=== PATIENT | male | born 1995 | race Caucasian/White ===

== ENCOUNTER 2016-12-19 15:56 | Emergency (ER) | payer SELFPAY ==
[2016-12-19 16:18] VITALS: BP 124/66
--- NOTE | 2016-12-19 16:34 | EDM.PDOC ---
ED HPI GENERAL MEDICAL PROBLEM - General Chief Complaint: Lower Extremity Injury/Pain Stated Complaint: BROKEN FOOT [id number] Time Seen by Provider: 12/19/16 16:32 Source of Information: Reports: Patient History Limitations: Reports: No Limitations - History of Present Illness INITIAL COMMENTS - FREE TEXT/NARRATIVE: 21 yo white male c/o left foot pain after injury last pm when drinking alcohol after jumping off wood deck Onset Date: 12/18/16 Onset Time: 21:00 Duration: Hour(s): Location: Reports: Lower Extremity, Left Quality: Reports: Ache Severity: Moderate Improves with: Reports: None Worsens with: Reports: None Associated Symptoms: Reports: No Other Symptoms Left Upper Feet Pain Score (Numeric/FACES): 8 - Related Data Allergies Allergy/AdvReac Type Severity Reaction Status Date / Time No Known Allergies Allergy Verified 12/19/16 16:32 Home Meds: Home Meds . [No Known Home Meds] 12/19/16 [History] Review of Systems - Review of Systems Review Of Systems: See Below Constitutional: Reports: No Symptoms Eyes: Reports: No Symptoms Ears: Reports: No Symptoms Nose: Reports: No Symptoms Mouth/Throat: Reports: No Symptoms Respiratory: Reports: No Symptoms Cardiovascular: Reports: No Symptoms GI/Abdominal: Reports: No Symptoms Genitourinary: Reports: No Symptoms Musculoskeletal: Reports: Foot Pain (left) Skin: Reports: No Symptoms Neurological: Reports: No Symptoms Psychiatric: Reports: No Symptoms ED EXAM, GENERAL - Physical Exam Exam: See Below Exam Limited By: Other (smell of alc) General Appearance: Alert, WD/WN, No Apparent Distress Eye Exam: Bilateral Eye: EOMI Ears: Normal External Exam Nose: Normal Inspection Throat/Mouth: Normal Inspection Head: Atraumatic Respiratory/Chest: No Respiratory Distress Cardiovascular: Normal Peripheral Pulses Back Exam: Normal Inspection Extremities: Normal Inspection, Other (left dorsal foot w/o swelling and positive tenderness w/o color change) Neurological: Alert, Oriented, CN II-XII Intact Psychiatric: Normal Affect, Normal Mood Skin Exam: Warm, Dry, Intact Lymphatic: No Adenopathy Course - Vital Signs Last Recorded V/S: Last Vital Signs Temp 37.4 C 12/19/16 16:17 Pulse 101 H 12/19/16 16:17 Resp 18 12/19/16 16:17 BP 124/66 12/19/16 16:17 Pulse Ox 100 12/19/16 16:17 - Orders/Labs/Meds Orders: Active Orders 24 hr Category Date Time Status Foot Comp Min 3V Lt [CR] Urgent Exams 12/19/16 16:27 Taken DRUG SCREEN, URINE [URCHEM] Stat Lab 12/19/16 16:34 Ordered ETOH [ETHANOL BLOOD MEDICAL] [CHEM] Stat Lab 12/19/16 16:50 Received Departure - Departure Time of Disposition: 17:14 Disposition: Home, Self-Care 01 Condition: Good Clinical Impression: Contusion of foot, left Qualifiers: Encounter type: initial encounter Qualified Code(s): S90.32XA - Contusion of left foot, initial encounter - Discharge Information Forms: ED Department Discharge Additional Instructions: Rest Ice Pack TID X 15 mins. For Pain: Tylenol ES 500mg Q 4-6 hours as needed OR Motrin 600mg TID w/ food Stop Alcohol Intake F/U w/ PCP - My Orders Last 24 Hours: My Active Orders 12/19/16 16:27 Foot Comp Min 3V Lt [CR] Urgent 12/19/16 16:34 DRUG SCREEN, URINE [URCHEM] Stat 12/19/16 16:50 ETOH [ETHANOL BLOOD MEDICAL] [CHEM] Stat - Assessment/Plan Last 24 Hours: My Active Orders 12/19/16 16:27 Foot Comp Min 3V Lt [CR] Urgent 12/19/16 16:34 DRUG SCREEN, URINE [URCHEM] Stat 12/19/16 16:50 ETOH [ETHANOL BLOOD MEDICAL] [CHEM] Stat
== END 2016-12-19 17:34 | disposition home or self-care (01) ==
LOC: DL.ED 15:56
DX: S90.32XA Contusion of left foot, initial encounter (principal); W13.8XXA Fall from, out of or through other building or structure, initial encounter
CPT/HCPCS: 36415; 73630; 80305; 99284; G0480